=== PATIENT | male | born 1995 | race Caucasian/White ===

== ENCOUNTER 2020-01-26 15:15 | Emergency (ER) | payer BC ==
[2020-01-26] MEDS ORDERED: HYDROmorphone 1 MG/ML 1 ML SYRINGE IVP STA ×3 (15:25→18:09)
[2020-01-26] MEDS ORDERED: SODIUM CHLORIDE 0.9% 500 ML 500 ML IV ONE (15:26)
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
[2020-01-26 15:54] LABS: Basophils # (A) 0.1 k/uL (0-0.2); Basophils % (A) 1 %; Eosinophils # (A) 0.4 k/uL (0-0.7); Eosinophils % (A) 2 %; HCT 43.6 % (39.0-53.0); HGB 14.9 gm/dL (13.0-17.5); Lymphocytes # (A) 3.1 k/uL (1.0-4.8); Lymphocytes % (A) 18 %; MCH 28.4 pg (25.0-35.0); MCHC 34.1 g/dL (31.0-37.0); MCV 83.5 fL (80.0-100.0); Mean Platelet Volume 7.7; Monocytes # (A) 0.6 k/uL (0-1.0); Monocytes % (A) 4 %; Neutrophils # (A) 13.3 k/uL (1.3-7.7); Neutrophils % (A) 75 %; Platelet Count 284 k/uL (150-450); RBC 5.22 m/uL (4.30-5.90); WBC 17.7 k/uL (3.8-10.6)
[2020-01-26 16:06] LABS: INR 0.9 (<1.2); Partial Thromboplastin Time 23.5 sec (22.0-30.0); Prothrombin Time 9.5 sec (9.0-12.0)
[2020-01-26 16:08] LABS: ALT 86 U/L (4-49); AST 51 U/L (17-59); African American GFR (CKD) >90 (>60 ml/min/1.73 sqM); Albumin 4.4 g/dL (3.5-5.0); Alcohol <10 mg/dL; Alkaline Phosphatase 86 U/L (38-126); Anion Gap 7 mmol/L; Blood Urea Nitrogen 15 mg/dL (9-20); Calcium 9.7 mg/dL (8.4-10.2); Carbon Dioxide 24 mmol/L (22-30); Chloride 110 mmol/L (98-107); Glucose 121 mg/dL (74-99); Non-African American GFR(CKD) >90 (>60 ml/min/1.73 sqM); Potassium 4.2 mmol/L (3.5-5.1); Sodium 141 mmol/L (137-145); Total Bilirubin 0.4 mg/dL (0.2-1.3); Total Protein 7.2 g/dL (6.3-8.2)
[2020-01-26 16:18] VITALS: RESP 18
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
--- NOTE | 2020-01-26 17:17 | XR ---
EXAMINATION TYPE: XR tibia fibula RT DATE OF EXAM: 01/26/2020 COMPARISON: NONE HISTORY: Pain TECHNIQUE: 4 views FINDINGS: The tibia and fibula appear intact. I see no fracture nor dislocation. Joint spaces appear normal. IMPRESSION: Negative right tibia and fibula exam.
--- NOTE | 2020-01-26 17:18 | XR ---
EXAMINATION TYPE: XR pelvis AP view DATE OF EXAM: 01/26/2020 COMPARISON: NONE HISTORY: Pain TECHNIQUE: Single view FINDINGS: Pelvic ring appears intact. Proximal femurs and hip joints appear intact. Sacroiliac joints appear normal. IMPRESSION: Normal exam. No fracture.
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
[2020-01-26] MEDS ORDERED: DIPH,PERTUS(ACELL)TETVAC-LF 0.5 ML VIAL IM ONE (17:44)
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
[2020-01-26 18:21] VITALS: BP 134/83; PULSE 94; TEMP 99.1
== END 2020-01-26 19:05 | disposition other institution (70) ==
LOC: EC 15:15
DX: S72.351A Displaced comminuted fracture of shaft of right femur, initial encounter for closed fracture (principal); Z23 Encounter for immunization; Z88.0 Allergy status to penicillin; V89.2XXA Person injured in unspecified motor-vehicle accident, traffic, initial encounter; Y92.410 Unspecified street and highway as the place of occurrence of the external cause
CPT/HCPCS: 93005; 86900; 86901; 80053; 84484; 85025; 85610; 85730; 86850; 80320; 72170; 73552; 73590; 71045; 72125; 70486; 70450; 74177; 90715; 99285; 96374; 96376 ×2; 96361 ×3; 90471; J1170; Q9967; 96375